=== PATIENT | female | born 1985 | race Caucasian/White ===

== ENCOUNTER 2018-03-28 08:00 | Outpatient (CLI) | payer MEDICAID, OTHER ==
[2018-03-30 12:48] LABS: HEPATITIS C ANTIBODY NON-REACTIVE (NON-REACTIVE)
[2018-03-30 13:27] LABS: HIV AG/AB 4TH GEN NON-REACTIVE (NON-REACTIVE)
[2018-03-31 12:32] LABS: HSV 2 IGG TYPE SPECIFIC AB <0.90 index
== END 2018-03-28 23:59 | disposition home or self-care (01) ==
LOC: LAB.S 08:00
PROVIDERS: ATTEND Nurse Practitioner Family
DX: Z72.51 High risk heterosexual behavior (principal)
CPT/HCPCS: 36415; 81599; 86592; 86695; 86696; 86803; 87389; 87491; 87591

== ENCOUNTER 2019-05-01 13:28 | Outpatient (CLI) | payer MEDICAID ==
[2019-05-01 18:07] LABS: BASOPHILS % (AUTO) 0.3 %; EOSINOPHILS # (AUTO) 0.5 10^3/uL (0.0-0.7); EOSINOPHILS % (AUTO) 5.5 %; LYMPHOCYTES # (AUTO) 3.1 10^3/uL (1.5-3.5); LYMPHOCYTES % (AUTO) 33.7 %; MEAN CORPUSCULAR HGB CONC 32.7 g/dL (32.0-36.0); MEAN CORPUSCULAR VOLUME 88.6 fL (81.0-99.0); MEAN PLATELET VOLUME 10.4 fL (7.9-10.8); MONOCYTES # (AUTO) 0.5 10^3/uL (0.0-1.0); MONOCYTES % (AUTO) 5.6 %; NEUTROPHILS % (AUTO) 54.7 %; PLT - PLATELET COUNT 400 10^3/uL (130-450); RED BLOOD COUNT 4.49 10^6/uL (4.20-5.40); RED CELL DISTRIBUTION WIDTH 13.2 % (12.0-15.0); WHITE BLOOD COUNT 9.2 x10^3/uL (4.8-10.8)
[2019-05-01 18:11] LABS: ALBUMIN 3.9 g/dL (3.2-5.5); ALBUMIN/GLOBULIN RATIO 1.3 (1.0-2.2); BILIRUBIN,TOTAL 0.4 mg/dL (0.2-1.0); CALCIUM 9.7 mg/dL (8.5-10.3); CREATININE 0.9 mg/dL (0.4-1.0); TOTAL PROTEIN 6.9 g/dL (6.7-8.2)
== END 2019-05-01 13:29 | disposition home or self-care (01) ==
LOC: LAB.S 13:28
PROVIDERS: ATTEND Registered Nurse
DX: F41.9 Anxiety disorder, unspecified (principal); F32.9 Major depressive disorder, single episode, unspecified; N92.1 Excessive and frequent menstruation with irregular cycle
CPT/HCPCS: 36415; 80053; 84443; 85025

== ENCOUNTER 2019-06-05 14:27 | Outpatient (CLI) | payer MEDICAID ==
--- NOTE | 2019-06-06 16:10 | Ultrasound Report ---
Reason: MENOMETRORRHAGIA Procedure Date: 06/05/2019 Accession Number: [id number] / [id number] Procedure: US - Pelvic w/Transvaginal CPT Code: Final Report FULL RESULT: EXAM: PELVIC ULTRASOUND EXAM DATE: 06/05/2019 03:58 PM. CLINICAL HISTORY: Menometrorrhagia. COMPARISON: None. TECHNIQUE: Realtime transabdominal pelvic scan performed to identify the uterus and adnexa and as an overview of other pelvic structures, followed by transvaginal scan to provide greater detail of the uterus and adnexa, with static image documentation. FINDINGS: Uterus: 6.7 x 3.1 x 4.4 cm, volume 48 cc. Retroverted position. Normal overall size and echotexture. Masses: A posterior intramural fibroid measures 1.0 x 1.0 x 1.0 cm. Endometrium: 2 mm. No masses or thickening. Cervix: Small nabothian cysts are present measuring up to 6 mm. Right Ovary: 3.3 x 1.5 x 2.7 cm, volume 10 cc. Normal echotexture and blood flow. Left Ovary: Surgically absent. Free Fluid: Small. Other: None. IMPRESSION: 1. 1.0 cm posterior intramural fibroid. 2. Left ovary surgically absent. 3. Endometrium within normal limits. RADIA
== END 2019-06-05 14:28 | disposition home or self-care (01) ==
LOC: DI 14:27
PROVIDERS: ATTEND Obstetrics & Gynecology
DX: N92.1 Excessive and frequent menstruation with irregular cycle (principal); D25.1 Intramural leiomyoma of uterus; Z90.721 Acquired absence of ovaries, unilateral
CPT/HCPCS: 76830; 76856

== ENCOUNTER 2019-10-14 17:21 | Emergency (ER) | payer MEDICAID ==
[2019-10-14 17:58] LABS: BILIRUBIN,URINE NEGATIVE (NEGATIVE); KETONES,URINE (UA) NEGATIVE (NEGATIVE); OCCULT BLOOD,URINE NEGATIVE (NEGATIVE)
[2019-10-14] MEDS ORDERED: MORPHINE 2 MG/ML CARPUJECT IVP STA (18:13)
[2019-10-14 18:14] LABS: CLARITY,URINE CLEAR (CLEAR)
[2019-10-14 18:15] LABS: BACTERIA,URINE None Seen /HPF (None Seen); HCG UR QUAL NEGATIVE; RBC,URINE None Seen /HPF (0-5); SQUAMOUS EPITHELIAL CELL,UR RARE Squamous (<= Few)
--- NOTE | 2019-10-14 18:27 | ED Physician Documentation ---
PD HPI FEMALE - Stated complaint Stated Complaint: F - Chief complaint Chief Complaint: UTI - History obtained from History obtained from: Patient - History of Present Illness Timing - onset: Other (Several days worth of burning dysuria and small clots with hematuria. No flank pain fevers or nausea. Similar to prior episode of cystitis.) Review of Systems Constitutional: denies: Fever, Chills Throat: reports: Reviewed and negative Cardiac: reports: Reviewed and negative Respiratory: reports: Reviewed and negative PD PAST MEDICAL HISTORY - Past Medical History Past Medical History: Yes Psych: Depression, Anxiety, ADD/ADHD - Past Surgical History Past Surgical History: Yes - Present Medications Home Medications: Ambulatory Orders Medication Instructions Recorded Confirmed Bcp 10/14/19 Dextroamphetamine/Amphetamine 20 mg PO BID 10/14/19 10/14/19 [Adderall 20 mg Tablet] Escitalopram [Lexapro] 10 mg PO DAILY 10/14/19 10/14/19 Nitrofurantoin Monohyd/M-Cryst 100 mg PO BID #10 capsule 10/14/19 [Macrobid 100 mg Capsule] Valacyclovir HCl [Valtrex] 1,000 mg PO 10/14/19 buPROPion [Wellbutrin Sr] 100 mg PO BID 10/14/19 10/14/19 buPROPion [Wellbutrin Xl] 150 mg PO DAILY 10/14/19 10/14/19 - Allergies Allergies/Adverse Reactions: Allergies Allergy/AdvReac Type Severity Reaction Status Date / Time No Known Drug Allergies Allergy Verified 10/14/19 17:28 - Social History Does the pt smoke?: No Smoking Status: Never smoker Does the pt drink ETOH?: No Does the pt have substance abuse?: No - Immunizations Immunizations are current?: Yes PD ED PE NORMAL - Vitals Vital signs reviewed: Yes - General General: Alert and oriented X 3, No acute distress - Abdomen Abdomen: Normal bowel sounds, Soft, Non tender - Back Back: No CVA TTP - Derm Derm: Normal color, Warm and dry - Neuro Neuro: Alert and oriented X 3, Normal speech Results - Vitals Vitals: Vital Signs - 24 hr 10/14/19 17:26 Temperature 37.1 C Heart Rate 85 Respiratory 18 Rate Blood Pressure 130/90 H O2 Saturation 97 - Labs Labs: Laboratory Tests 10/14/19 17:45 Urine Color ORANGE Urine Clarity CLEAR Urine pH 5.0 Ur Specific Peck 1.010 Urine Protein Urine Glucose (UA) Urine Ketones NEGATIVE Urine Occult Blood NEGATIVE Urine Nitrite Urine Bilirubin NEGATIVE Urine Urobilinogen Ur Leukocyte Esterase Urine RBC None Seen Urine WBC 0-3 Ur Squamous Epith Cells RARE Squamous Urine Bacteria None Seen Ur Microscopic Review INDICATED Urine Culture Comments NOT INDICATED Urine HCG, Qual NEGATIVE PD MEDICAL DECISION MAKING - ED course ED course: She has been taking Azo so the urine is basically uninterpretable. That says her symptoms are quite typical for cystitis and will treat as such. Departure - Departure Disposition: Home, Self Care Clinical Impression: Cystitis Condition: Good Record reviewed to determine appropriate education?: Yes Instructions: ED UTI Cystitis Female Prescriptions: Nitrofurantoin Monohyd/M-Cryst [Macrobid 100 mg Capsule] 100 mg PO BID #10 capsule Comments: You can continue the Azo for another 2 days or so, at that point cease using it and return if your symptoms are not better or worsen. Or see your doctor at that juncture.
[2019-10-14 18:29] VITALS: BP 140/92
[2019-10-14] MEDS ORDERED: NITROFURANTOIN MACRO 100 MG CAPSULE PO STA (18:34)
== END 2019-10-14 18:39 | disposition home or self-care (01) ==
LOC: ED 17:21
DX: N30.91 Cystitis, unspecified with hematuria (principal)
CPT/HCPCS: 81001; 81025; 99283; 99284; A9270; 81003; 87086

== ENCOUNTER 2019-11-23 19:48 | Outpatient (CLI) | payer MEDICAID | END 2019-11-23 19:49 | disposition home or self-care (01) | LOC: COV 19:48 | PROVIDERS: ATTEND Family Medicine | DX: R05 Cough (principal); R06.02 Shortness of breath; J02.9 Acute pharyngitis, unspecified; R09.81 Nasal congestion; Z20.828 Contact with and (suspected) exposure to other viral communicable diseases ==

== ENCOUNTER 2020-06-18 08:00 | Outpatient (CLI) | payer MEDICAID ==
[2020-06-18 20:49] LABS: CANDIDA KRUSEI DNA NEGATIVE (NEGATIVE)
[2020-06-18 20:50] LABS: CANDIDA GROUP DNA NEGATIVE (NEGATIVE); TRICHOMONAS VAGINALIS DNA NEGATIVE (NEGATIVE)
[2020-06-18 22:43] LABS: TRICHOMONAS VAGINALIS DNA NEGATIVE (NEGATIVE)
== END 2020-06-18 23:59 | disposition home or self-care (01) ==
LOC: LAB.R 08:00
PROVIDERS: ATTEND Obstetrics & Gynecology
DX: Z11.3 Encounter for screening for infections with a predominantly sexual mode of transmission (principal); R10.2 Pelvic and perineal pain
CPT/HCPCS: 87491; 87591; 87661; 87801

== ENCOUNTER 2021-01-31 07:00 | Outpatient (CLI) | payer MEDICAID ==
[2021-01-31 21:38] LABS: ESTIMATED AVERAGE GLUCOSE 105 mg/dL (70-100); HEMOGLOBIN A1c% 5.3 % (4.27-6.07)
== END 2021-01-31 23:59 | disposition home or self-care (01) ==
LOC: LAB 07:00
PROVIDERS: ATTEND Midwife
DX: R73.02 Impaired glucose tolerance (oral) (principal)
CPT/HCPCS: 36415; 83036